=== PATIENT | female | born 1955 | race Caucasian/White ===

== ENCOUNTER 2017-08-07 10:24 | Day surgery (SDC) | payer OTHER, MEDICAID ==
[~2017-08-07 10:24] MED LIST: 0.9 % SODIUM CHLORIDE 10 ML DISP.SYRIN. IV; HYDROmorphone 2 MG/ML VIAL IV; LIDOCAINE 1% PF 2 ML VIAL. ID; MORPHINE SULFATE 4 MG/ML DISP.SYRIN. IV; ONDANSETRON PF 4 MG/2 ML VIAL. IV; PROCHLORPERAZINE 10 MG/2 ML VIAL. IV; fentaNYL PF VIAL 100 MCG/2 ML VIAL IV
[2017-08-07 11:14] LABS: POC GLUCOSE 102 mg/dL (70-99)
[2017-08-07] MEDS: IV RINGERS,LACTATED 1000ML 1,000 ML IV (11:25)
[2017-08-07 11:46] LABS: ANION GAP 11 (6-14); BLOOD UREA NITROGEN 6 mg/dL (7-20); CALCIUM 9.4 mg/dL (8.5-10.1); CARBON DIOXIDE 26 mmol/L (21-32); CHLORIDE 100 mmol/L (98-107); CREATININE 0.8 mg/dL (0.6-1.0); GFR 72.9; GLUCOSE 116 mg/dL (70-99); MAGNESIUM 2.1 mg/dL (1.8-2.4); POTASSIUM 4.1 mmol/L (3.5-5.1); SODIUM 137 mmol/L (136-145)
[2017-08-07] MEDS ORDERED: LIDOCAINE 2% VISCOUS 15 ML SOLUTION. SWSW (12:15)
[2017-08-07] MEDS ORDERED: BENZOCAINE ONE 20% MUCOSAL SPRAY. MM (12:15)
[2017-08-07] MEDS ORDERED: LIDOCAINE 2% TOPICAL JELLY 5GM TUBE. TP (12:15)
== END 2017-08-07 13:45 | disposition home or self-care (01) ==
LOC: SURG 10:24
DX: I48.91 Unspecified atrial fibrillation (principal); I25.10 Atherosclerotic heart disease of native coronary artery without angina pectoris; I73.9 Peripheral vascular disease, unspecified; F17.210 Nicotine dependence, cigarettes, uncomplicated; Z79.899 Other long term (current) drug therapy; Z53.8 Procedure and treatment not carried out for other reasons
CPT/HCPCS: 36415; 80048; 82962; 83735; 92960; 93005

== ENCOUNTER → 2018-05-08 | Day surgery (SDC) | payer OTHER, MEDICAID ==
[~2018-05-08] MED LIST changes: -0.9 % SODIUM CHLORIDE 10 ML DISP.SYRIN. IV; +ALBU0.63 IH; +AMLO10TA6 PO; +AMLO5TAB4 PO; +APIX5TAB4 PO; +CLON1TAB11 PO; +CRESTOR5 MG PO; +DABI150C PO; -HYDROmorphone 2 MG/ML VIAL IV; +HYDROmorphone 2 MG/ML VIAL IV PRN; +IPRATRPIUM/ALBUTEROL 0.5/2.5MG 3 ML NEBU. NEB ONE; +IPRATRPIUM/ALBUTEROL 0.5/2.5MG 3 ML NEBU. ONE; +IV RINGERS,LACTATED 1000ML 1,000 ML IV SCH; -LIDOCAINE 1% PF 2 ML VIAL. ID; +LIDOCAINE 1% PF 2 ML VIAL. ID PRN; +LORA0.5T PO; +LOSA100T2 PO; +LOSA100T7 PO; +MELO15TA6 PO; +METF500T16 PO; +METO-239 PO; +MORPHINE SULFATE 2 MG/ML VIAL. IV PRN; -MORPHINE SULFATE 4 MG/ML DISP.SYRIN. IV; +OMEP20TA8 PO; -ONDANSETRON PF 4 MG/2 ML VIAL. IV; -PROCHLORPERAZINE 10 MG/2 ML VIAL. IV; +PROCHLORPERAZINE 10 MG/2 ML VIAL. IV PRN; +PROPOFOL 20 ML IV ONE; +SOTA80TA48 PO; +TIOT18CA IH; +UMEC1DIS IH; +VITAMIN D3 PO; +duoneb; -fentaNYL PF VIAL 100 MCG/2 ML VIAL IV; +fentaNYL PF VIAL 100 MCG/2 ML VIAL IV PRN
--- NOTE | 2018-05-08 11:49 | EKG ---
[facility] [address] [place] [address] Test Date: 2018-05-08 Test Time: 11:56:53 Pat Name: MAXIME DALLAS Department: Room: Gender: F Process Control Specialist: TV : 1955 Requested By: DANIEL CLINE Order Number: [id number] Reading MD: Fazal Zabala Measurements Intervals [place] Rate: 71 P: ME: QRS: 61 QRSD: 82 T: 6 QT: 404 QTc: 439 Interpretive Statements ATRIAL FIBRILLATION/FLUTTER Electronically Signed On 05-09-2018 9:41:28 STATION SUPERINTENDENT by Fazal Zabala
--- NOTE | 2018-05-08 14:38 | EKG ---
[facility] [address] [place] [address] Test Date: 2018-05-08 Test Time: 14:35:27 Pat Name: MAXIME DALLAS Department: Room: Gender: F President & Founder: ANIL : 1955 Requested By: ELSY DURAN Order Number: [id number] Reading MD: Fazal Zabala Measurements Intervals [place] Rate: 53 P: 48 OK: 188 QRS: 62 QRSD: 86 T: 48 QT: 490 QTc: 462 Interpretive Statements SINUS RHYTHM NONSPECIFIC ST-T WAVE CHANGES. Electronically Signed On 05-09-2018 9:45:44 AUDIT CLERKS SUPERVISOR by Fazal Zabala
[2018-05-08 14:53] VITALS: BP 119/67
--- NOTE | 2018-05-09 12:49 | PDOC4 ---
PROCEDURE Procedure PROCEDURE External cardioversion INDICATIONS Atrial fibrillation PROCEDURAL DETAILS An informed consent was obtained from patient. Patient was given intravenous propofol for anesthesia by anesthesiology team. She was then administered 200 J of synchronized biphasic DC current with successful conversion of her rhythm from atrial fibrillation to sinus rhythm. She was hemodynamically stable without any neurological deficits at the end of procedure. She tolerated the procedure well. There were no immediate complications. CONCLUSIONS Successful cardioversion of atypical fibrillation to sinus rhythm. ELSY DURAN MD May 09, 2018 12:48
== END | disposition home or self-care (01) ==
LOC: SURG 11:27
PROVIDERS: ATTEND Internal Medicine Cardiovascular Disease
DX: I48.91 Unspecified atrial fibrillation (principal); E11.9 Type 2 diabetes mellitus without complications; Z79.899 Other long term (current) drug therapy; Z79.84 Long term (current) use of oral hypoglycemic drugs
CPT/HCPCS: 82962; 92960; 93005; J2704; J7620

== ENCOUNTER → 2019-01-07 | Outpatient (CLI) | payer OTHER, MEDICAID ==
[2018-05-08 14:53] VITALS: BP 119/67
[~2019-01-07] MED LIST changes: -AMLO10TA6 PO; +AMLO10TA8 PO; -HYDROmorphone 2 MG/ML VIAL IV PRN; -IPRATRPIUM/ALBUTEROL 0.5/2.5MG 3 ML NEBU. NEB ONE; -IPRATRPIUM/ALBUTEROL 0.5/2.5MG 3 ML NEBU. ONE; -IV RINGERS,LACTATED 1000ML 1,000 ML IV SCH; -LIDOCAINE 1% PF 2 ML VIAL. ID PRN; +LOSA100T14 PO; -LOSA100T7 PO; -MORPHINE SULFATE 2 MG/ML VIAL. IV PRN; -PROCHLORPERAZINE 10 MG/2 ML VIAL. IV PRN; -PROPOFOL 20 ML IV ONE; -fentaNYL PF VIAL 100 MCG/2 ML VIAL IV PRN
--- NOTE | 2019-01-07 10:49 | RAD ---
CHEST PA LATERAL History: COPD, surgery clearance Comparison: July 11, 2014 Findings: 2 views of the chest are submitted. There again has been a median sternotomy. Pericardial cardiac silhouette is somewhat prominent although unchanged in size. There is no significant dependent pleural fluid, pneumothorax, lobar infiltrate. There is likely emphysema. There is some opacity in the left suprahilar region although probably due to vasculature combination with left anterior first rib margin. Impression: 1. No acute radiographic abnormality is identified. 2. There is some opacity of the left suprahilar region possibly due to the vasculature in combination with left first rib margin, although CT would more accurately evaluate for the presence of pulmonary nodule. Electronically signed by: Paras Evans MD (01/07/2019 10:46 AM) [id number]
== END | disposition home or self-care (01) ==
LOC: RAD 10:21
PROVIDERS: ATTEND Internal Medicine Pulmonary Disease
DX: J44.9 Chronic obstructive pulmonary disease, unspecified (principal)
CPT/HCPCS: 71046

== ENCOUNTER → 2019-01-18 | Outpatient (CLI) | payer OTHER, MEDICAID ==
[2018-05-08 14:53] VITALS: BP 119/67
[~2019-01-18] MED LIST changes: +ALBUTEROL SULFATE 2.5 MG/3 ML NEBU. NEB ONE; -CLON1TAB11 PO; +CLONAZEPAM1 MG PO
--- NOTE | 2019-01-29 13:02 | RESP ---
DATE OF SERVICE: 01/18/2019 PULMONARY FUNCTION TESTS ATTENDING PHYSICIAN: Evelyn Veliz MD The patient's FEV1 was 0.8, which is 35% predicted, FVC 1.36, which is 46% predicted. The FEV1/FVC ratio was severely reduced. There was no response to bronchodilators. Lung volume showed increased total lung capacity and increased residual volume. Diffusion capacity was 78% predicted. IMPRESSION: 1. Severe obstructive airway disease. 2. No response to bronchodilators. 3. Lung volumes consistent with air trapping and hyperinflation. 4. Mildly reduced diffusion capacity. SULTANA SAVAGE MD DR: CHASE/patrick JOB#: [id number] / [id number] EVELYN Ponce MD
== END | disposition home or self-care (01) ==
LOC: PF 10:18
PROVIDERS: ATTEND Internal Medicine Pulmonary Disease
DX: J43.9 Emphysema, unspecified (principal); I25.10 Atherosclerotic heart disease of native coronary artery without angina pectoris; F17.200 Nicotine dependence, unspecified, uncomplicated; I48.91 Unspecified atrial fibrillation; Z95.5 Presence of coronary angioplasty implant and graft
CPT/HCPCS: 94060; 94640; 94729; J7613

== ENCOUNTER 2019-03-12 07:55 | Day surgery (SDC) | payer OTHER, MEDICAID ==
[~2019-03-12 07:55] MED LIST changes: -ALBUTEROL SULFATE 2.5 MG/3 ML NEBU. NEB ONE; +BENZOCAINE ONE 20% MUCOSAL SPRAY. MM; +FURO20TA3 PO; +GABA300C18 PO; +HYDROmorphone 2 MG/ML VIAL IV PRN; +IV RINGERS,LACTATED 1000ML 1,000 ML IV SCH; +LIDOCAINE 2% TOPICAL JELLY 5GM TUBE. TP ONE; +LIDOCAINE 2% VISCOUS 15 ML SOLUTION. SWSW ONE; +MORPHINE SULFATE 2 MG/ML VIAL. IV PRN; +POTA10TA12 PO; +PROCHLORPERAZINE 10 MG/2 ML VIAL. IV PRN; +TIOT4MIS3 IH; +fentaNYL PF VIAL 100 MCG/2 ML VIAL IV PRN
[2019-03-12] MEDS ORDERED: PROPOFOL 20 ML IV ONE (09:19)
[2019-03-12 11:00] VITALS: BP 127/71
--- NOTE | 2019-03-12 11:00 | CARD ---
MR#: [id number] Date of Study: 03/12/2019 Ordering Physician: DANIEL LOGAN, Referring Physician: DANIEL LOGAN, Tech: Clementine Mccall APPROVED REPORT EXAM: Transesophageal echocardiogram with color flow Doppler. INDICATION Ablasion Reason For Test : Rule out Intracardiac Thrombus. PROCEDURE After obtaining informed consent, patient underwent transesophageal echo in the PACU. Type of Sedation : General Anesthesia Sedation was administered by Roberto Ying CRNA. Sedation was achieved with Propofol 100mg intravenously. Transesophageal probe was inserted and advanced into esophagus by Enrique Logan MD. Echo enhancement indication: R/O Thrombus. The FLAQUITA was performed without complications. Throughout the procedure, the blood pressure, pulse oximetry, cardiac rhythm, and rate were monitored . The patient tolerated the procedure without adverse effects. Recovery from general anesthesia was une ventful and vital signs were stable. LEFT VENTRICLE The left ventricle is normal size. There is normal left ventricular wall thickness. The systolic func tion is moderately impaired. The Ejection Fraction is 35-40%. There is global hypokinesis of the left ventricle. Diastology not performed. No left ventricle thrombus noted on this study. RIGHT VENTRICLE The right ventricle is mildly dilated. There is normal right ventricular wall thickness. The right ve ntricular systolic function is normal. ATRIA The left atrium is borderline dilated. The right atrium is mildly dilated. The atrial septum is aneur ysmal. There is no thrombus noted in the left atrial appendage. AORTIC VALVE The aortic valve is thickened but opens well. Doppler and Color Flow revealed no significant aortic r egurgitation. There is no significant aortic valvular stenosis. MITRAL VALVE The mitral valve is thickened but opens well. There is no evidence of mitral valve prolapse. There is no mitral valve stenosis. Doppler and Color-flow revealed trace mitral regurgitation. TRICUSPID VALVE The tricuspid valve is normal in structure and function. Doppler and Color Flow revealed trace to mil d tricuspid regurgitation. There is no tricuspid valve stenosis. PULMONIC VALVE The pulmonic valve is not well visualized. Doppler and Color Flow revealed no pulmonic valvular regur gitation. There is no pulmonic valvular stenosis. GREAT VESSELS The aortic root is normal in size. The IVC is normal in size and collapses >50% with inspiration. PERICARDIAL EFFUSION There is no pleural effusion. Critical Notification Critical Value: No <Conclusion> The systolic function is moderately impaired. The Ejection Fraction is 35-40%. There is global hypokinesis of the left ventricle. No left ventricle thrombus noted on this study. There is no thrombus noted in the left atrial appendage. Signed by : Daniel Logan, Electronically Approved : 03/12/2019 10:59:59
--- NOTE | 2019-03-12 22:58 | PDOC1 ---
History and Physical Visit Information Date of Admission: History of Present Illness History of Present Illness Reason for Appointment FLAQUITA for preparation for afib ablation History of Present Illness History of Present Illness: 64-year-old woman with known history of proximal atrial fibrillation, hypertensi on and coronary disease comes into the hospital today for FLAQUITA. Since her last visit after her cardioversion back in June she continues to have intermittent episodes of palpitations. She reports fatigue associated with these palpitations which she construed to be her atrial fibrillation. She's not had any syncope. She denies any exertional chest pain or dyspnea. Overall she's tolerating her medical therapy well. In the past we have discussed possibility of obtaining a EP evaluation for ablation. Pmhx as noted above SOchx: No alcohol, tobacco or illicit drug use. ALL: Bupropion Meds: See MAR Vital Signs Ht 63 in, Wt 177 lbs, Per EMR Examination General Exam: GENERAL APPEARANCE: NAD. HEENT: NC/AT. NECK: Supple. HEART: Irr irr. NO murmurs. Neck veins flat. CHEST: Normal. LUNGS: CTAB. ABDOMEN: Soft, NT/ND. +BS. No bruits. NEUROLOGIC EXAM: No focal deficits. Normal strength 5/5. . SKIN: No rashes. EXTREMITIES: No edema. . PERIPHERAL PULSES: 2+ radial, femoral, DP/PT pulses. No carotid bruits. . Assessments 1. PAF (paroxysmal atrial fibrillation) - I48.0 (Primary) 2. Benign essential HTN - I10 3. CAD (coronary artery disease) - I25.10 4. Dyslipidemia - E78.5 5. COPD (chronic obstructive pulmonary disease) - J44.9 6. Persistent atrial fibrillation - I48.1 Current Medications Current Medications Current Medications Benzocaine (Hurricaine One) 2 spray 1X ONCE MM Last administered on 03/12/19at 09:22; Start 03/12/19 at 07:30; Stop 03/12/19 at 07:31; Status DC Fentanyl Citrate (Fentanyl 2ml Vial) 25 mcg PRN Q5MIN PRN IV MILD PAIN 1-3; Start 03/12/19 at 07:00; Stop 03/12/19 at 11:35; Status DC Fentanyl Citrate (Fentanyl 2ml Vial) 50 mcg PRN Q5MIN PRN IV MODERATE TO SEVERE PAIN; Start 03/12/19 at 07:00; Stop 03/12/19 at 11:35; Status DC Hydromorphone HCl (Dilaudid) 0.5 mg PRN Q10MIN PRN IV SEV PAIN, Second choice; Start 03/12/19 at 07:00; Stop 03/12/19 at 11:35; Status DC Lidocaine HCl (Viscous Lidocaine) 15 ml 1X ONCE SWSW Last administered on 03/12/19at 09:22; Start 03/12/19 at 07:30; Stop 03/12/19 at 07:31; Status DC Lidocaine HCl (Xylocaine 2% Topical 5gm Tube) 1 julian 1X ONCE TP Last adm inistered on 03/12/19at 09:22; Start 03/12/19 at 07:30; Stop 03/12/19 at 07:31; Status DC Morphine Sulfate (Morphine Sulfate) 1 mg PRN Q10MIN PRN IV SEVERE PAIN 7-10; Start 03/12/19 at 07:00; Stop 03/12/19 at 11:35; Status DC Prochlorperazine Edisylate (Compazine) 5 mg PACU PRN PRN IV NAUSEA, MRX1; Start 03/12/19 at 07:00; Stop 03/12/19 at 11:35; Status DC Propofol 20 ml @ As Directed STK-MED ONCE IV ; Start 03/12/19 at 09:19; Stop 03/12/19 at 09:19; Status DC Ringer's Solution 1,000 ml @ 30 mls/hr Q24H IV Last administered on 03/12/19at 08:38; Start 03/12/19 at 07:00; Stop 03/12/19 at 11:35; Status DC Allergies Allergies Allergies Coded Allergies Type Severity Reaction Last Updated Verified bupropion Allergy Intermediate Hives 03/08/19 Yes Vitals VITALS Vital Signs Date Time Temp Pulse Resp B/P (MAP) Pulse Ox O2 Delivery O2 Flow Rate FiO2 03/12/19 11:00 57 22 127/71 96 Room Air 03/12/19 10:30 97.3 2 97.3 VTE Prophylaxis Ordered VTE Prophylaxis Devices: Yes VTE Pharmacological Prophylaxi: No DANIEL CLINE MD Mar 12, 2019 22:58
== END 2019-03-12 11:35 | disposition home or self-care (01) ==
LOC: SURG 07:55
PROVIDERS: ATTEND Internal Medicine Cardiovascular Disease
DX: I48.0 Paroxysmal atrial fibrillation (principal); I08.1 Rheumatic disorders of both mitral and tricuspid valves; I10 Essential (primary) hypertension; I25.10 Atherosclerotic heart disease of native coronary artery without angina pectoris; E78.5 Hyperlipidemia, unspecified; J44.9 Chronic obstructive pulmonary disease, unspecified; Z88.8 Allergy status to other drugs, medicaments and biological substances
CPT/HCPCS: 93312; 93325; J2704